=== PATIENT | male | born 1990 | race Caucasian/White ===

== ENCOUNTER 2025-08-09 18:40 | Emergency (ER) | payer MEDICAID, SELFPAY ==
[2025-08-09 18:51] VITALS: BP 133/69; PULSE 76; RESP 18; TEMP 36.8; O2SAT 94
--- NOTE | 2025-08-09 19:13 | ED.GENADUL_ITS ---
Discharge Plan Disposition Patient Disposition: Home Condition: Stable Discharge Details Clinical Impression: Cellulitis of leg ED Provider: Satish Mehta Home Meds and New Rx's Prescriptions: New prednisone 20 mg tablet 60 mg PO DAILY 4 Days Qty: 12 0RF clindamycin HCl 150 mg capsule 450 mg PO TID 7 Days Qty: 63 0RF Discharge Instructions Additional Instructions: Take the antibiotic and prednisone as prescribed. Follow-up with your primary care provider if you are not improving within 5 days. If you feel more ill or have new symptoms such as high fevers return to the emergency department for reevaluation. Stand Alone Forms: Portal Information HPI General Date/Time Provider Initiated Documentation: 08/09/25 18:41 . Limitations to Documentation: no limitations . Information obtained by: patient . History of Present Illness 35 year old M presents to the emergency department with the chief complaint of right leg redness, described as moderate, Quality is described as aching, Patient started experiencing this day(s) (2) and it has been constant. No relieving factors improve symptom(s), No exacerbating factors reported . Patient notes denies chest pain and shortness of breath. Patient did receive the following treatments prior to arrival, none Related Data Home Medications ?Medication ?Instructions ?Recorded ?Confirmed clindamycin HCl 150 mg capsule 450 mg (3 x 150 mg) PO TID 7 days 08/09/25 #63 caps prednisone 20 mg tablet 60 mg (3 x 20 mg) PO DAILY 4 days 08/09/25 #12 tabs Previous Rx's ?Medication ?Instructions ?Recorded clindamycin HCl 150 mg capsule 450 mg (3 x 150 mg) PO TID 7 days 08/09/25 #63 caps prednisone 20 mg tablet 60 mg (3 x 20 mg) PO DAILY 4 days 08/09/25 #12 tabs Allergies Allergy/AdvReac Type Severity Reaction Status Date / Time amoxicillin Allergy Intermediate Nausea Verified 08/09/25 19:18 Penicillins Allergy Intermediate Nausea Verified 08/09/25 19:18 General Stated Complaint: Cellulitis KRISTIN: 3 Review of Systems All systems reviewed & are unremarkable except as noted in HPI and below Constitutional Constitutional: Denies chills, Denies fever(s) and Denies weakness Cardiovascular Cardiovascular: Denies chest pain and Denies dyspnea Respiratory Respiratory: Denies cough and Denies dyspnea Gastrointestinal Gastrointestinal: Denies abdominal pain, Denies nausea and Denies vomiting Integumentary/Breasts Skin/Breast: Reports erythema Neurologic Neurologic: Denies weakness Exam Const General: no acute distress Orientation: alert HENMT Head: normal to inspection Ears: external ears normal General nose exam: external nose normal Mouth: moist mucous membranes Eyes General: appearance normal, both eyes and all related structures Neck Neck: normal visual inspection Resp Effort & Inspection: normal respiratory effort and able to speak in complete sentences Cardio Rate: regular rate Skin General skin exam: erythema Neuro General: patient alert and patient oriented x3 Extrem General: full ROM and capillary refill normal Psych Mental Status: mental status grossly normal Course Vital Signs Vital signs: Vital Signs Temperature 36.8 C 08/09/25 18:51 Pulse 76 08/09/25 18:51 Respiratory Rate 18 08/09/25 18:51 Blood Pressure 133/69 08/09/25 18:51 Pulse Oximetry 94 08/09/25 18:51 Temperature 36.8 C 08/09/25 18:51 Pulse 76 08/09/25 18:51 Respiratory Rate 18 08/09/25 18:51 Blood Pressure 133/69 08/09/25 18:51 Pulse Oximetry 94 08/09/25 18:51 Oxygen Delivery Method Room Air 08/09/25 18:51 Oxygen Flow Rate 0 08/09/25 18:51 End Tidal Co2 8 08/09/25 18:51 Medical Decision Making 35-year-old male comes in with redness to the right lower extremity for the past few days. He says that he broke his leg a while ago and has had recurrent cellulitis in the leg. Denies any fevers or systemic symptoms. He has faint erythema to the anterior right lower extremity, is not warm to touch and it blanches. There is no crepitus or fluctuance. He has full range of motion of the knee and ankle. Normal cap refill. Suspect cellulitis versus dermatitis but will cover him with clindamycin and also placed him on a short course of prednisone. Given his lack of fever and his well appearance I doubt entities such as nec fasc and sepsis and do not feel any labs or imaging are indicated. He will follow-up with his PCP if not improving and return precautions given. Differential Diagnosis Differential Diagnosis: Lymphedema, dermatitis, cellulitis PFSH All Active Problems (Updated 08/09/25 @ 19:17 by Satish Mehta MD) Cellulitis of leg (Acute) Social History Smoking/Tobacco Use Status: Current every day Tobacco Type: cigarettes and e- cigarettes Smoking risk assessment performed?: Yes Alcohol Intake: never Substance use type: does not use Details: patient state he is prescribe methadone which he takes daily Do you feel safe at home: Yes Do you feel safe in your relationship?: Yes
[2025-08-09 19:14] VITALS: BP 133/69; PULSE 76; RESP 18; TEMP 36.8; O2SAT 94
[2025-08-09] MEDS: predniSONE 20 MG TAB 60 MG PO (19:15)
[2025-08-09] MEDS: Clindamycin 150 MG CAP, 12 CAPS/BTL 450 MG PO (19:23)
== END 2025-08-09 19:30 | disposition home or self-care (01) ==
LOC: ER 19:55
PROVIDERS: Emergency Provider Emergency Medicine
DX: L03.115 Cellulitis of right lower limb (principal)
CPT/HCPCS: 99284; 99283; J7512

== ENCOUNTER 2025-08-10 07:59 | Emergency (ER) | payer MEDICAID, SELFPAY ==
[2025-08-10 08:06] VITALS: BP 128/84; PULSE 74; RESP 12; TEMP 36.9; O2SAT 99
--- NOTE | 2025-08-10 08:37 | W.ED.GENAD ---
Discharge Plan Disposition Patient Disposition: Home Discharge Details Clinical Impression: Cellulitis of leg, Methadone dependence, Post surgical complication Primary Care Provider: Unknown,Unknown ED Provider: Rekha Paniagua Home Meds and New Rx's Prescriptions: No Action prednisone 20 mg tablet 60 mg PO DAILY 4 Days Qty: 12 0RF clindamycin HCl 150 mg capsule 450 mg PO TID 7 Days Qty: 63 0RF Discharge Instructions Instructions: Cellulitis (Skin Infection), Adult ED Additional Instructions: [facility]- [facility] hotline follow-up with CHRISTOPHER in [place] for continued dosing fill your prescription for clindamycin and continue taking try to elevate your leg as much as you are able follow-up with your orthopedist this week return with spreading redness, fever, worsening pain recheck with pcp in 48 hours Stand Alone Forms: Portal Information HPI General Date/Time Provider Initiated Documentation: 08/10/25 08:06. HPI Narrative: This 35-year-old male with history of lower leg fracture with external fixation removed in July with recurrent infection and discharged yesterday from skilled nursing presents with report of need for methadone dose and concern for continued redness and swelling to right lower extremity. Patient is currently homeless and looking for transportation back to the [facility]. Patient denies any systemic signs of illness. He states he is concerned because he is still currently homeless but is looking to return to the [facility] area. He has been methadone compliant and has not used IV drugs per patient in the past 10 years. He started the clindamycin yesterday which he received in the hospital. Related Data Home Medications ?Medication ?Instructions ?Recorded ?Confirmed clindamycin HCl 150 mg capsule 450 mg (3 x 150 mg) PO TID 7 days 08/09/25 08/10/25 #63 caps prednisone 20 mg tablet 60 mg (3 x 20 mg) PO DAILY 4 days 08/09/25 08/10/25 #12 tabs Previous Rx's ?Medication ?Instructions ?Recorded clindamycin HCl 150 mg capsule 450 mg (3 x 150 mg) PO TID 7 days 08/09/25 #63 caps prednisone 20 mg tablet 60 mg (3 x 20 mg) PO DAILY 4 days 08/09/25 #12 tabs Allergies Allergy/AdvReac Type Severity Reaction Status Date / Time amoxicillin Allergy Intermediate Nausea Verified 08/10/25 08:13 Penicillins Allergy Intermediate Nausea Verified 08/10/25 08:13 General Stated Complaint: Recheck KRISTIN: 4 Exam Narrative Exam Narrative: Alert and oriented 35-year-old male in no acute distress, right lower extremity with significant erythema mild swelling, no drainage but wound noted where external fixation hardware was removed. Neurovascularly intact not systemically ill appearing no palpable fluctuance or crepitus. No calf swelling or tenderness, redness nicely overlying tibial region anteriorly Course Vital Signs Vital signs: Vital Signs Temperature 36.9 C 08/10/25 08:06 Pulse 74 08/10/25 08:06 Respiratory Rate 12 08/10/25 08:06 Blood Pressure 128/84 08/10/25 08:06 Pulse Oximetry 99 08/10/25 08:06 Temperature 36.9 C 08/10/25 08:06 Temperature Source Oral 08/10/25 08:06 Pulse 74 08/10/25 08:06 Respiratory Rate 12 08/10/25 08:06 Blood Pressure 128/84 08/10/25 08:06 Blood Pressure Position Sitting 08/10/25 08:06 Pulse Oximetry 99 08/10/25 08:06 Oxygen Delivery Method Room Air 08/10/25 08:06 Oxygen Flow Rate 0 08/10/25 08:06 Medical Decision Making Results: CBC without acute leukocytosis CMP within normal limits, tib-fib does not show acute abnormality per radiology interpretation review CRP is just slightly greater than 0.5 Assessment and plan: There is no sign of systemic illness on this patient presenting with right lower extremity swelling and redness. Patient is postop and since May which was performed [place] [facility] He has had recent admission and follow-up with his orthopedic provider and there is a plan to potentially remove some hardware. Patient is taking clindamycin as last evening, he will continue to take this medication. He is on the phone with [facility] to establish housing as he is currently homeless. He will plan on relocating back to the [place] area today, where he will continue care with [facility] for methadone therapy. Return precautions reviewed and patient expressed understanding. He will continue taking the clindamycin at home and a single dose of methadone 140 mg was confirmed with [facility]STOPHER and administered PFS All Active Problems (Updated 08/10/25 @ 09:36 by AUTUMN Payne) Post surgical complication (Acute) Methadone dependence (Acute) Cellulitis of leg (Acute) Social History Smoking/Tobacco Use Status: Current every day Tobacco Type: cigarettes and e-cigarettes Smoking risk assessment performed?: Yes Alcohol Intake: never Substance use type: does not use Details: patient state he is prescribe methadone which he takes daily Do you feel safe at home: Yes Do you feel safe in your relationship?: Yes
[2025-08-10] MEDS: Methadone Liquid 10 MG/ML 140 MG PO (08:41)
[2025-08-10] MEDS: CLINDAMYCIN 600 MG/50 ML BAG 100 MG IVPB (08:46)
[2025-08-10 08:48] LABS: Abs Immature Grans 0.03 10^3/uL (0.0-0.06); HCT 39.9 % (40.0-50.0); HGB 12.0 g/dL (13.5-17.5); Immature Grans % 0.3 %; MCH 25.4 pg (27.0-33.0); MCHC 30.1 % (32.0-36.0); MCV 85 fL (80-95); MPV 8.8 fL (8.0-11.0); Platelet Count 311 10^3/uL (130-400); RBC 4.72 10^6/uL (4.36-5.78); RDW 14.1 % (11.8-14.1); RDW-SD 43.3 fL; WBC 8.98 10^3/uL (4.4-10.8)
[2025-08-10 09:07] LABS: C-Reactive Protein 0.85 mg/dL (<=0.50)
--- NOTE | 2025-08-10 09:07 | DI.RAD_ITS ---
Exam(s) XR TIB/FIB RT EXAM: XR TIB/FIB RT CLINICAL HISTORY: recurrent infections, post op. TECHNIQUE: 2D digital imaging was performed. Two views. COMPARISON: No exams were available for comparison FINDINGS: BONES: No acute fracture is present. There is hardware at the tibial plateau related to prior fracture fixation. Additional fixation plates are noted in the distal tibia and fibula. The fractures appear subacute. There are no bony destructive lesion is seen. Visualized portion of knee and ankle joints are unremarkable. SOFT TISSUE: Swelling around the malleoli. IMPRESSION: Subacute fractures of the distal tibia and fibula with hardware in place. Also subacute or old fractures involving the proximal fibula and tibia. No acute fractures are identified. No destructive bony lesions are visible. DATA REPOSITORY: RADIATION DOSE DELIVERED:
[2025-08-10 09:08] LABS: ALT 11 U/L (10-49); AST 18 U/L (<34); Albumin 5.0 g/dL (3.2-5.0); Alkaline Phosphatase 130 U/L (46-116); Anion Gap 5.3 mmol/L (3-11); BUN 11 mg/dL (9-23); Bilirubin, Total 0.3 mg/dL (0.2-1.2); CO2 31.8 mmol/L (20.0-31.0); Calcium 9.8 mg/dL (8.3-10.6); Chloride 100 mmol/L (98-107); Glucose 96 mg/dL (74-106); Potassium 3.9 mmol/L (3.5-5.1); Sodium 137 mmol/L (136-145); Total Protein 9.5 g/dL (5.7-8.2)
[2025-08-10] MEDS: Nicotine 2 MG GUM CH (10:17)
[2025-08-10] MEDS: Nicotine 4 MG GUM CH (10:17)
--- NOTE | 2025-08-11 06:34 | NUR.NOTE ---
ARELI Hoffman called [facility] ED @[phone] to verify pt's Methadone dose they received during 08/10/2025 visit. Chart accessed by this RN to verify Methadone dose of 140mg via OCT.
== END 2025-08-10 10:23 | disposition home or self-care (01) ==
PROVIDERS: Emergency Provider Physician Assistant
DX: L03.115 Cellulitis of right lower limb (principal); F11.20 Opioid dependence, uncomplicated
CPT/HCPCS: 99284 ×2; 36415; 80053; 96365; 73590; 85025; 86140; J0737